=== PATIENT | female | born 1935 | race Caucasian/White ===

== ENCOUNTER → 2017-11-10 | Outpatient (CLI) | payer MEDICARE, OTHER ==
[~2017-11-10] MED LIST: ACETAMINOPHEN-1 EAC1 PO; CALCIUM OYSTER500 MG PO; CENTRUM SILVER1 EAC4 PO; FUROSEMIDE 40 M40 MG PO; GABAPENTIN PO; GLUCOSAMINE PO; HYDROCODON-ACE1 EAC7 PO; IRON325 PO; MOBIC15 MG PO; OMEPRAZOLE40 MG PO; OS-CAL ULTRA T1 EACH PO; OXYCODONE HCL 55 MG PO; SIMVASTATIN40 MG PO; VESICARE10 M1 PO; VITAMIN D3 PO
== END ==
LOC: M.RAD 11-04 13:30
DX: M81.0 Age-related osteoporosis without current pathological fracture (principal); Z78.0 Asymptomatic menopausal state